=== PATIENT | male | born 1965 | race Caucasian/White ===

== ENCOUNTER 2022-11-11 10:55 | Emergency (ER) | payer OTHER, SELFPAY ==
[2022-11-11 11:01] VITALS: BP 158/115; PULSE 112; RESP 15; TEMP 36.7; O2SAT 99; BMI 29.2
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
[2022-11-11] MEDS: HYDROCODONE/ACET 5/325 TABLET 1 TAB PO (11:57)
[2022-11-11] MEDS: ACETAMINOPHEN 325 MG TABLET 650 MG PO (11:58)
[2022-11-11 12:03] LABS: Add Manual Diff / Slide Review NO; Basophils Absolute Auto 0 /uL (0-100); Basophils Percent Auto 0.1 % (0-2); Eosinophils Absolute Auto 0 /uL (0-450); Eosinophils Percent Auto 0.3 % (2-4); Hemoglobin 13.4 g/dL (13.5-17.5); Lymphocytes Absolute Auto 500 /uL (1100-4500); Lymphocytes Percent Auto 4.6 % (25-40); Mean Corpuscular HGB Conc 33.5 % (30-36); Mean Corpuscular Hemoglobin 25.2 PG (26-34); Mean Corpuscular Volume 75.1 fL (80-100); Monocytes Absolute Auto 600 /uL (0-900); Monocytes Percent Auto 4.9 % (3-14); Neutrophils Absolute Auto 10600 /uL (1500-7000); Neutrophils Percent Auto 90.1 % (50-75); Platelet Count 348 X10^3/uL (150-400); Red Blood Cell Count 5.33 X10^6/uL (4.5-5.9); Red Cell Distribution Width 16.9 % (11.6-14.8); White Blood Cell Count 11.8 X10^3/uL (4.5-11.0)
[2022-11-11 12:15] LABS: Alanine Aminotransferase 33 IU/L (<50); Albumin 4.6 g/dL (3.5-5.0); Albumin Globulin Ratio 1.2 (1.0-2.8); Alkaline Phosphatase 146 U/L (38-126); Aspartate Aminotransferase 42 IU/L (17-59); BUN Creatinine Ratio 11.8 (6-22); Bilirubin Total 0.8 mg/dL (0.2-1.3); Blood Urea Nitrogen 11 mg/dL (9-20); Calcium 9.3 mg/dL (8.4-10.2); Carbon Dioxide 28 mmol/L (22-32); Chloride 102 mmol/L (98-107); Estimated Glomerular Filt Rate > 60 mL/min (>60); Globulin 3.9 g/dL (1.7-4.1); Glucose 98 mg/dL (70-100); HEMOLYSIS < 15 (0-50); Potassium 3.8 mmol/L (3.4-5.1); Sodium 138 mmol/L (137-145); Total Protein 8.5 g/dL (6.3-8.2)
[2022-11-11 12:32] VITALS: BP 134/89; PULSE 104; O2SAT 99
[2022-11-11] MEDS: LIDOCAINE PATCH 1 EACH ADH..PATCH TOP (12:48)
[2022-11-11] MEDS: diazePAM 5 MG TABLET 10 MG PO (12:48)
[2022-11-11 13:02] VITALS: BP 133/85; PULSE 96; RESP 24; O2SAT 99
== END 2022-11-11 13:03 | disposition home or self-care (01) ==
PROVIDERS: Emergency Provider Nurse Practitioner Critical Care Medicine
DX: S06.0X0A Concussion without loss of consciousness, initial encounter (principal); S99.921A Unspecified injury of right foot, initial encounter; S22.32XA Fracture of one rib, left side, initial encounter for closed fracture; R07.89 Other chest pain; V89.2XXA Person injured in unspecified motor-vehicle accident, traffic, initial encounter
CPT/HCPCS: 70450; 71250; 72125; 73610; 73630; 74176; 80053; 85025; 93005; 99284

== ENCOUNTER 2022-12-05 11:49 | Emergency (ER) | payer OTHER, SELFPAY ==
[2022-12-05 12:08] VITALS: BP 164/79; PULSE 98; RESP 16; TEMP 36.3; O2SAT 97; BMI 25.5
--- NOTE | 2022-12-05 14:34 | PC.NURSE ---
a/o x 4. States he feels at his baseline and is going to call for f/u in the am. Choosing to go home. Encouraged to return for any needs, worsening, concerns. Home [facility].
== END 2022-12-05 14:35 | disposition left against medical advice (07) ==
PROVIDERS: Emergency Provider Emergency Medicine
DX: R42 Dizziness and giddiness (principal)
CPT/HCPCS: 99281

== ENCOUNTER → 2024-11-30 13:45 | Outpatient (CLI) | payer OTHER, SELFPAY ==
[2024-11-30 15:15] LABS: Add Manual Diff / Slide Review NO; Hematocrit 42.7 % (41-53); Hemoglobin 14.6 g/dL (13.5-17.5); Lymphocytes Absolute Auto 1000 /uL (1100-4500); Mean Corpuscular HGB Conc 34.2 % (30-36); Mean Corpuscular Hemoglobin 28.4 PG (26-34); Mean Corpuscular Volume 83.0 fL (80-100); Platelet Count 324 X10^3/uL (150-400)
[2024-11-30 18:22] LABS: Blood Urea Nitrogen 16 mg/dL (9-20); Calcium 9.3 mg/dL (8.4-10.2); Carbon Dioxide 29 mmol/L (22-32); Chloride 102 mmol/L (98-107); Cholesterol 200 mg/dL (140-199); Estimated Glomerular Filt Rate > 60 mL/min (>60); Glucose 88 mg/dL (70-99); HEMOLYSIS < 15 (0-50); Potassium 4.4 mmol/L (3.4-5.1); Sodium 141 mmol/L (137-145); Triglycerides 105 mg/dL (35-150)
[2024-11-30 20:19] LABS: TSH w/ Reflex to FT4 2.32 uIU/mL (0.47-4.68)
[2024-11-30 21:43] LABS: HDL Cholesterol 70 mg/dL (40-60)
== END ==
PROVIDERS: PCP Nurse Practitioner Family; Referring Provider Nurse Practitioner Family; Visit Provider Nurse Practitioner Family
DX: Z13.220 Encounter for screening for lipoid disorders (principal); I10 Essential (primary) hypertension; R53.1 Weakness
CPT/HCPCS: 36415; 80048; 80061; 84443; 85025